=== PATIENT | female | born 1985 | race Caucasian/White ===

== ENCOUNTER 2017-05-22 23:05 | Outpatient (CLI) | payer OTHER | END 2017-05-23 01:00 | disposition left against medical advice (07) | LOC: OBC SRH 23:05 → OB SRH 23:08 → OBC SRH 05-23 01:00 | PROC: 4A0HXCZ Measurement of Products of Conception, Cardiac Rate, External Approach (ICD-10-PCS; principal; 2017-05-22) | DX: O42.913 Preterm premature rupture of membranes, unspecified as to length of time between rupture and onset of labor, third trimester (principal); Z3A.30 30 weeks gestation of pregnancy ==